=== PATIENT | female | born 1980 | race Caucasian/White ===

== ENCOUNTER 2023-05-25 12:29 | Emergency (ER) | payer BC, SELFPAY ==
--- OUTSIDE RECORDS SUMMARY | 2023-05-25 12:31 | XMS REPORT | Continuity of Care Document ---
:1980 Author Organization [facility] t Address [address] [place] [id number] Care Team Providers Name Role Phone JANNA Attending Clinician Unavailable JANNA Admitting Clinician Unavailable Problems This patient has no known problems. Allergies, Adverse Reactions, Alerts This patient has no known allergies or adverse reactions. Medications This patient has no known medications. Procedures This patient has no known procedures. Encounters Start End Encounter Admission Attending Care Care Encounter Source Date/Time Date/Time Type Type Clinicians Facility Department ID 2022-04-03 2022-04-03 Out[facility] [id number] [place] 00:00:00 00:00:00 N [id number] da [facility] Program 2017-07-08 2017-07-08 Outpatient [facility] [id number] [facility] 00:00:00 00:00:00 2017-07-08 2017-07-08 Outpatient [facility] [id number] [facility] 00:00:00 00:00:00 2017-07-01 2017-07-01 Outpatient [facility] [id number] [facility] 15:37:38 15:37:38 2017-07-01 2017-07-01 Outpatient [facility] [id number] [facility] 15:04:53 15:04:53 Results This patient has no known results.
[2023-05-25] MEDS ORDERED: TDAP (DIPHTH,PERTUSS(ACELL),TET VAC) 0.5 ML VIAL IMVAC ONE (13:27)
[2023-05-25 13:57] LABS: Absolute Lymphocytes (CBC) 3.1 K/uL (0.7-4.9); Hematocrit 39.3 % (36.0-45.0); Lymphocytes % 31.3 % (15.3-44.8); MCV 85.7 fL (80-100); MPV 7.9 fL (7.6-11.3); Platelets 414 thou/uL (152-406); RBC Red Blood Cell Count 4.58 M/uL (3.86-4.86)
[2023-05-25 14:07] LABS: Protime INR 1.11
[2023-05-25 14:08] LABS: Barbiturates NEGATIVE (NEGATIVE); Benzodiazepines NEGATIVE (NEGATIVE); Cocaine NEGATIVE (NEGATIVE); METHAMPHETAM POSITIVE (NEGATIVE); Methadone NEGATIVE (NEGATIVE); Opiates NEGATIVE (NEGATIVE); Phencyclidine NEGATIVE (NEGATIVE); THC Cannibis NEGATIVE (NEGATIVE)
--- NOTE | 2023-05-25 14:15 | RAD REPORT ---
EXAM DESCRIPTION: RAD - Hand Right 3 View - 05/25/2023 1:50 pm CLINICAL HISTORY: laceration with glass COMPARISON: No comparisons TECHNIQUE: Right hand, 3 views. FINDINGS: No fracture is identified. There is no dislocation or periosteal reaction noted. No foreign body. Swelling and soft tissue irreg ularity along the proximal phalanx fourth digit. IMPRESSION: Soft tissue abnormalities suggesting laceration along the proximal phalanx fourth digit. No underlying acute osseous abnormality.
[2023-05-25 14:16] LABS: ALT/SGPT 20 U/L (13-56); AST/SGOT 24 U/L (15-37); Alkaline Phosphatase 78 U/L (45-117); BUN Blood Urea Nitrogen 4 mg/dL (7-18); Bicarbonate 22 mEq/L (21-32); Bilirubin Direct 0.1 mg/dL (0-0.2); Bilirubin Indirect, Calculated 0.4 mg/dL (0.2-0.8); Bilirubin Total 0.5 mg/dL (0.2-1.0); Glomerular Filtration Rate 97 ml/min (=/>90); Glucose Level 81 mg/dL (74-106); Potassium 3.5 mEq/L (3.5-5.1); Protein, Total 7.8 g/dL (6.4-8.2); Sodium Level 139 mEq/L (136-145)
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
[2023-05-25] MEDS ORDERED: ACETAMINOPHEN 500 MG TAB ONE (14:45)
[2023-05-25] MEDS ORDERED: Ringers Lactate 1,000 ML IV ONE (14:45)
[2023-05-25] MEDS ORDERED: NICOTINE 21 MG/PAT TD ONE (18:03)
[2023-05-25] MEDS ORDERED: LORAZEPAM 1 MG TABLET ONE (20:23)
[2023-05-25 22:39] VITALS: TEMP 98.5; O2SAT 99
[2023-05-25 22:40] VITALS: BP 131/79
--- NOTE | 2023-05-27 14:40 | EKG ---
Test Date: 2023-05-25 Test Time: 12:49:21 Circular Knife Cutter Machine: CK MEASUREMENT RESULTS: Intervals: Rate: 87 DE: 144 QRSD: 90 QT: 384 QTc: 462 [place]: P: 69 DE: 144 QRS: 67 T: 45 INTERPRETIVE STATEMENTS: Normal sinus rhythm Nonspecific ST abnormality Abnormal ECG No previous ECG available for comparison Electronically Signed On 05-27-23 14:34:00 CDT by Timmy Ash
== END 2023-05-25 21:08 ==
LOC: ER 12:29
DX: S61.011A Laceration without foreign body of right thumb without damage to nail, initial encounter (principal); R45.851 Suicidal ideations; F10.10 Alcohol abuse, uncomplicated; T43.625A Adverse effect of amphetamines, initial encounter
CPT/HCPCS: 36415; 80048; 80076; 80143; 80179; 80307; 82077; 85025; 85610; 85730; 93005; 96360; 96361; 96372; 99285; J7120